=== PATIENT | male | born 1985 | race Caucasian/White ===

== ENCOUNTER 2016-07-08 08:31 | Emergency (ER) | payer SELFPAY ==
[2016-07-08] MEDS ORDERED: LETS SOLN TOPICAL 1 EA SYR TP ONE (08:40)
[2016-07-08 08:43] VITALS: TEMP 97.9; O2SAT 95
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
[2016-07-08 09:56] VITALS: BP 138/86; PULSE 80; RESP 16
== END 2016-07-08 09:53 | disposition home or self-care (01) ==
DX: S83.91XA Sprain of unspecified site of right knee, initial encounter (principal); S70.11XA Contusion of right thigh, initial encounter; S80.811A Abrasion, right lower leg, initial encounter; V29.9XXA Motorcycle rider (driver) (passenger) injured in unspecified traffic accident, initial encounter; Y92.410 Unspecified street and highway as the place of occurrence of the external cause

== ENCOUNTER → 2016-07-27 | Emergency (ER) | payer OTHER ==
[2016-07-27 19:27] VITALS: BP 141/89; RESP 75; TEMP 98.6; O2SAT 98
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
== END | disposition home or self-care (01) ==
LOC: CED 19:01
DX: S39.012A Strain of muscle, fascia and tendon of lower back, initial encounter (principal)
CPT/HCPCS: G0463-PO

== ENCOUNTER 2017-09-17 01:49 | Emergency (ER) | payer OTHER ==
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
[2017-09-17 03:37] VITALS: BP 124/66
== END 2017-09-17 03:36 | disposition home or self-care (01) ==
PROC: 0HQGXZZ Repair Left Hand Skin, External Approach (ICD-10-PCS; principal; 2017-09-17)
DX: S61.213A Laceration without foreign body of left middle finger without damage to nail, initial encounter (principal); W26.0XXA Contact with knife, initial encounter; Y92.69 Other specified industrial and construction area as the place of occurrence of the external cause; Y99.0 Civilian activity done for income or pay; Y93.89 Activity, other specified
CPT/HCPCS: L3925